=== PATIENT | male | born 1960 | race African-American/Black ===

== ENCOUNTER → 2017-06-29 | Outpatient (CLI) | payer MEDICAID ==
--- NOTE | 2017-06-30 16:20 | MRI ---
Lumbar spine MRI without contrast Indication: 57-year-old man with chronic low back pain and radiculopathy. Comparison: None available. Technique: Multi planar, multi sequence imaging of the lumbar spine was performed without the use of intravenous contrast. Findings: There is straightening of the normal lumbar lordosis with otherwise normal lumbar spine alignment. Ve rtebral body heights are normal and there is no STIR signal abnormality to suggest acute osseous or s oft tissue injury. Bone marrow signal is normal. The conus medullaris terminates at L1 level and the nerve roots of the cauda equina are within normal limits. Multilevel degenerative changes will be det musa on a level by level basis below: T12-L1 and L1-2: There is an anterior disk osteophyte with minimal facet arthropathy. There is no spi nal canal or neural foraminal stenosis. L2-3: There is a tiny diffuse disc bulge with mild degenerative facet arthropathy and ligamentum flav um hypertrophy. These findings result in mild bilateral neural foraminal stenosis. L3-4: There is a tiny diffuse disc bulge with mild degenerative facet arthropathy and ligamentum flav um hypertrophy. These findings result in mild bilateral neural foraminal stenosis. L4-5: There is a diffuse disc bulge with moderate degenerative facet arthropathy and ligamentum flavu m hypertrophy. These findings result in moderate bilateral neural foraminal stenosis. L5-S1: There is a circumferential disk osteophyte complex with moderate bilateral degenerative facet arthropathy. These findings result in severe bilateral neural foraminal stenosis. There is suspected compression of the exiting left L5 nerve root and at least contact of the exiting right L5 nerve root . The herniated disc also contacts the transiting S1 nerve roots bilaterally within the lateral reces s. There are mild degenerative endplate changes at this level. The visualized intra-abdominal structures are unremarkable apart from a tiny right renal cyst. Impression: Mild to moderate multilevel lumbar spondylosis as detailed above which is most advanced at L5-S1 wher e there is severe bilateral neural foraminal stenosis with suspected compression of the exiting left L5 nerve root and contact of the exiting right L5 nerve root and bilateral transiting S1 nerve roots. . Reported By:
--- NOTE | 2017-06-30 16:30 | MRI ---
Cervical spine MRI without contrast Indication: Cervicalgia and right-sided radiculopathy. Comparison: None available. Technique: Multi planar, multi sequence imaging of the cervical spine was obtained without the use of intravenous contrast. Findings: There is straightening of the normal cervical lordosis with otherwise normal cervical spine alignment . Vertebral body heights are maintained. There is mild diffuse increased T2 and decreased T1 signal t hroughout the C5 and C6 vertebral bodies without a discrete lesion seen on T1 weighted images. Additi onally, no fracture line is seen. Remainder of bone marrow signal is normal. The visualized craniocer vical junction and spinal cord are within normal limits. Multilevel degenerative changes will be detailed on a level by level basis below: C2-3: There is disc desiccation without a disk herniation. There is minimal facet arthropathy. There is no spinal canal or neural foraminal stenosis. C3-4: There is disc desiccation without a disk herniation. There is mild uncovertebral joint hypertro phy and facet arthropathy, more prominent on the right. This results in mild bilateral neural foramin al stenosis, right greater than left. C4-5: There is a small anterior disc osteophyte with mild bilateral facet arthropathy and uncovertebr al joint hypertrophy, again more prominent on the right. These findings result in moderate right and mild left neural foraminal stenosis. C5-6: There is a circumferential disk osteophyte complex which is asymmetric to the right with associ ated right greater than left degenerative facet arthropathy and uncovertebral joint hypertrophy. Thes e findings result in severe right neural foraminal stenosis and moderate left neural foraminal stenos is. There is also mild spinal canal stenosis at this level of the disc osteophyte mildly effaces the right ventral cervical cord without cord signal abnormality. C6-7: There is a circumferential disk osteophyte complex which is asymmetric to the right with associ ated right greater than left degenerative facet arthropathy and uncovertebral joint hypertrophy. Thes e findings result in severe right neural foraminal stenosis and moderate left neural foraminal stenos is. There is also mild spinal canal stenosis at this level of the disc osteophyte mildly effaces the right ventral cervical cord without cord signal abnormality. C7-T1: There is a small anterior disc osteophyte complex with mild facet arthropathy. Findings result in minimal right neural foraminal stenosis. Visualized cervical soft tissues are unremarkable. Impression: 1. Moderate multilevel cervical spondylosis as detailed above, most advanced at C5-6 and C6-7 where t here is severe right and moderate left neural foraminal stenosis as well as mild spinal canal stenosi s. 2. Mild diffuse bone marrow edema throughout the C5 and C6 vertebral bodies without a discrete lesion seen on T1 weighted images. Findings may be related to reactive marrow changes or stress reaction. A dditionally this could be related to radiation treatment in the appropriate clinical setting. Infecti on is felt less likely given sparing of the disc space. Underlying metastatic lesions are also within the differential. Further evaluation with post-contrast cervical spine MRI could be performed if cli nically warranted. Reported By:
== END | disposition home or self-care (01) | DRG 552 ==
LOC: RAD 13:26
PROVIDERS: ATTEND Internal Medicine
DX: M54.2 Cervicalgia (principal); M54.17 Radiculopathy, lumbosacral region; M79.1 Myalgia; M47.892 Other spondylosis, cervical region; M48.02 Spinal stenosis, cervical region; R60.0 Localized edema
CPT/HCPCS: 72141; 72148